=== PATIENT | female | born 1955 | race Caucasian/White ===

== ENCOUNTER 2017-09-01 12:13 | Outpatient (CLI) | payer BC ==
--- NOTE | 2017-09-01 15:13 | RAD ---
LEFT SHOULDER ARTHROGRAM: Date: 09/01/17 INDICATION: Left shoulder pain, concern for rotator cuff tear. TECHNIQUE: Informed consent obtained. Preprocedure aircraft cylinder mechanic images were performed of the left shoulder. A timeout w as performed. Site overlying left shoulder was prepped and draped in the usual sterile fashion. Buffe red 1% lidocaine was administered to overlying subcutaneous tissues. Under fluoroscopic guidance, I p ersonally placed a 22 gauge spinal needle within the glenohumeral joint. I injected the joint with 7 mL of dilute Gadolinium solution. The patient tolerated the injection without difficulty. Total fluoroscopic time was 0.6 minutes. Total exposure was 30 Gy*cm^2. The patient was escorted to the MRI suite for follow-up MR arthrogram of left shoulder. FINDINGS: No acute fracture or subluxation is evident. Glenohumeral and AC joint alignment appear within normal limits. Visualized left lung is clear. IMPRESSION: Successful left shoulder arthrogram. POS: [facility]
--- NOTE | 2017-09-01 15:17 | MRI ---
MRI ARTHROGRAM LEFT SHOULDER: Date: 09/01/17 INDICATION: Left shoulder pain. TECHNIQUE: Multiplanar, multiplanar MR images were obtained of the left shoulder following interarticular admini stration of a dilute Gadolinium solution. FINDINGS: There is a tear involving the superior glenoid labrum extending from approximately the 3 o'clock posi tion through the 12 o'clock position and terminating at approximately the 10 o'clock position. There is a paralabral cyst seen measuring 3.6 mm on image 13, series 6, adjacent to the posterior superior aspect of the glenoid labrum. There is partial thickness extension into the biceps anchor, best seen on image 11 of series 6. The biceps tendon is located. No rotator cuff tear is evident. There is mild AC joint osteoarthrosis. The anterior inferior glenohumeral labral ligament complex is normal appear ing. Glenohumeral articular surface is normal appearing. IMPRESSION: 1. Findings most suspicious for a Type III SLAP tear. 2. Mild AC joint osteoarthrosis. POS: [facility]
== END 2017-09-01 12:14 | disposition home or self-care (01) ==
LOC: RAD 12:13
PROVIDERS: ATTEND Orthopaedic Surgery
DX: M25.512 Pain in left shoulder (principal); M19.012 Primary osteoarthritis, left shoulder
CPT/HCPCS: 23350

== ENCOUNTER 2017-09-14 06:13 | Day surgery (SDC) | payer BC ==
[2017-09-13 11:50] VITALS: BMI 30.4
[2017-09-14] MEDS ORDERED: Lidocaine 0.5%/Epinephrine 1:200,000 50 ml Vial ONE (06:48)
[2017-09-14] MEDS ORDERED: Lidocaine 1% w/Epinephrine 1:200K 30 ML VIAL ONE (06:48)
[2017-09-14 06:49] LABS: #Eosinphils 0.3 thou/uL (0.0-0.7); #Lymphocytes 1.3 thou/uL (1.20-3.40); #Monocytes 0.7 thou/uL (0.11-0.59); #Neutrophils 5.4 thou/uL (1.40-6.50); %Basophils 0.6 % (0.0-1.0); %Eosinophils 3.9 % (0.0-10.0); %Lymphocytes 16.9 % (21.0-51.0); %Monocytes 8.5 % (0.0-10.0); %Neutrophils 70.2 % (42.0-75.0); Hemoglobin 13.5 g/dL (12.0-16.0); Mean Corpuscular Hemoglobin 31.6 pg (27.0-31.0); Mean Corpuscular Volume 92.8 fl (81.0-99.0); Mean Platelet Volume 7.3 fL (7.4-10.4); Platelet Count 334 thou/uL (130-400); Red Blood Cell (RBC) Count 4.28 mill/uL (4.20-5.40); White Blood Cell (WBC) Count 7.7 thou/uL (4.8-10.8)
[2017-09-14] MEDS ORDERED: Lidocaine 1% (PF) 30 ML VIAL ONE (06:50)
[2017-09-14] MEDS ORDERED: Fentanyl 100 MCG/2 ML VIAL ONE ×2 (06:50→07:22)
[2017-09-14] MEDS ORDERED: Midazolam HCl 2 mg/2 ml Vial ONE (06:50)
[2017-09-14 07:14] LABS: Anion Gap 11 mmol/L (10-20); BUN (Urea Nitrogen) 12 mg/dL (9.8-20.1); Calc. Creatinine Clearance 90 mL/min (70-130); Calcium 9.4 mg/dL (7.8-10.44); Carbon Dioxide 26 mmol/L (22-29); Chloride 109 mmol/L (98-107); Estimated GFR-MDRD 80; Glucose 101 mg/dL (70-105); Potassium 4.1 mmol/L (3.5-5.1); Sodium 142 mmol/L (136-145)
[2017-09-14] MEDS ORDERED: Ropivacaine 0.2% 550 ML 550 ML NERVE BLCK SCH (07:25)
[2017-09-14] MEDS ORDERED: HYDROcodone/Acetaminophen 10/325 mg Tablet PO PRN ×2 (07:25)
[2017-09-14] MEDS ORDERED: traMADol HCl 50 MG TAB PO PRN ×2 (07:25)
[2017-09-14] MEDS ORDERED: Ondansetron HCl/PF 4 MG/2 ML Vial IVP PRN (07:25)
[2017-09-14] MEDS ORDERED: Promethazine HCl 25 MG/ML VIAL IM PRN (07:25)
[2017-09-14] MEDS ORDERED: Zolpidem Tartrate 5 MG TAB PO PRN (07:25)
[2017-09-14] MEDS ORDERED: Fentanyl 100 MCG/2 ML VIAL IV PRN (07:26)
[2017-09-14] MEDS ORDERED: CEFAZOLIN/Water 2 GM/20 ML SYRINGE ONE (07:27)
--- NOTE | 2017-09-14 11:04 | OP ---
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 POSTOPERATIVE DIAGNOSES: 1. Left shoulder degenerative SLAP tear with biceps pain and instability. 2. The patient also had a partial undersurface cuff tear less than 10% of the thickness of the rotator cuff in the supraspinatus region. Procedure: 1. Left shoulder arthroscopy with debridement and shaving of partial Supraspinatus tear 2. Open biceps tenodesis left shoulder SURGEON: Cb Malhotra M.D. COUNSELOR CAMP: Timothy Singh PA-C. BLOOD LOSS: Minimal. ANESTHETIC: The patient had a general anesthetic as well as a preoperative block. IMPLANTS: We only have one implant which was an Arthrex 7 x 23 BioComposite Bio -Tenodesis screw. DISPOSITION: She did go to the recovery room in stable condition. INDICATIONS: A 62-year-old female who has failed nonoperative treatment for her left shoulder pain and was found to have degenerative SLAP tear and was felt to have significant biceps pain and instability secondary to this. At this time, she opted to have surgery. DESCRIPTION OF PROCEDURE: After all appropriate consent forms were explained and signed, she was taken to the operating room and at this time was given a general anesthetic. Once the level of anesthesia was appropriate, she was rolled into the right lateral decubitus position with all bony prominences well- padded. Axillary roll was placed underneath the right axilla. Johns bag was inflated to hold her in this position. The arm was then taken through some range of motion. She was found to be a little bit stiff in forward flexion, but no problem with external rotation. Once the patient had been manipulated to good range of motion, she was hung up in traction with 10 pounds to suspend the arm. The left shoulder and upper extremity were then prepped and draped in the standard surgical fashion. Bony anatomic landmarks were drawn out and the subacromial space was infiltrated with lidocaine with epinephrine. At this time , a posterior portal was established and the scope was placed into the shoulder joint. The glenohumeral diagnostic arthroscopy was commenced at this time after the anterior portal was made using a needle localization technique. The articular surfaces of the humeral head and glenoid were in good condition. No loose bodies were noted in the axillary pouch. There was a small undersurface partial thickness tear of the supraspinatus. Remaining rotator cuff was in good condition. The subscapularis was intact except for a tear in its most superior fibers leading to instability of the biceps and there was a degenerative labral tear also leading to biceps instability. This was corroborated by a significant amount of synovitis anterior to the biceps along the undersurface of the capsule. At this time, the shaver was introduced to debride the aforementioned areas. We then placed the green cannula anteriorly. We then used a needle to place a suture through our biceps tendon and used the scissors to cut off the biceps off its labral insertion. This area was debrided. At this time, the scope was repositioned in subacromial space. Lateral working portal was made. Bursa was removed. No bony decompression was performed. Rotator cuff was found to be scuffed on the superior surface, but no tear was noted. At this time, scope was removed, shoulder was drained. We then went ahead and made an incision right next to our puncture hole with our suture with a 15 blade down through skin. Bovie was used to coagulate any brisk venous bleeding. We sharply entered the deltoid fascia and used finger dissection to split the deltoid in line with its fibers to get down to the underlying transverse humeral ligament. This was opened up in its entirety. All brisk venous bleeding was coagulated and the biceps tendon was brought out into the wound. This was then sewn. The intraarticular portion removed. The pin was placed. We reamed with a 7 mm reamer to a depth of 25 and a 7 x 23 BioComposite Bio-Tenodesis screw was placed in standard fashion. Sutures were tied over top of this and then cut. The arm was then taken through full range of motion, deltoid was allowed to close upon itself. The wound was thoroughly irrigated and dried. We then closed our deltoid fascia with a running Vicryl, 2 -0 Vicryl, and nylon sutures were used to close the portals and the skin incision. A bulky sterile dressing was applied. The patient was awakened and taken to the recovery room in stable condition. All counts were correct at the end of the case. She received preoperative IV antibiotics. BG
[2017-09-14] MEDS ORDERED: Ketorolac Tromethamine 30 MG/ML VIAL IVP SCH (12:00)
[2017-09-14] MEDS ORDERED: Ropivacaine 0.2% HCl/PF (40 MG/20 ML VIAL) ONE (15:45)
[2017-09-14] MEDS ORDERED: Ropivacaine 0.5% HCl/PF (150 MG/30 ML VIAL) ONE (15:45)
[2017-09-14] MEDS ORDERED: PHENYLEPHRINE-NS 100 MCG/ML 10 ML SYRINGE ONE (16:24)
[2017-09-14] MEDS ORDERED: Lidocaine 1% PF 5 ML VIAL ONE (16:24)
[2017-09-14] MEDS ORDERED: Propofol 200 MG/20 ML VIAL ONE (16:24)
[2017-09-14] MEDS ORDERED: Glycopyrrolate 0.2 MG/ML 5 ML SYRINGE ONE (16:24)
[2017-09-14] MEDS ORDERED: Dexamethasone 20 MG/5 ML VIAL ONE (16:24)
== END 2017-09-14 12:00 | disposition home or self-care (01) ==
LOC: SDC 06:13
PROVIDERS: ATTEND Orthopaedic Surgery
PROC: 0LS40ZZ Reposition Left Upper Arm Tendon, Open Approach (ICD-10-PCS; principal; 2017-09-14)
PROC: 0LB24ZZ Excision of Left Shoulder Tendon, Percutaneous Endoscopic Approach (ICD-10-PCS; principal; 2017-09-14)
PROC: 0RHK04Z Insertion of Internal Fixation Device into Left Shoulder Joint, Open Approach (ICD-10-PCS; principal; 2017-09-14)
DX: S43.432A Superior glenoid labrum lesion of left shoulder, initial encounter (principal); M75.102 Unspecified rotator cuff tear or rupture of left shoulder, not specified as traumatic; I10 Essential (primary) hypertension; E78.5 Hyperlipidemia, unspecified; M19.90 Unspecified osteoarthritis, unspecified site; Z86.010 Personal history of colon polyps; Z79.82 Long term (current) use of aspirin; Z79.899 Other long term (current) drug therapy; Z88.1 Allergy status to other antibiotic agents; Z91.048 Other nonmedicinal substance allergy status; Z98.1 Arthrodesis status; Z90.49 Acquired absence of other specified parts of digestive tract; Z98.890 Other specified postprocedural states
CPT/HCPCS: 36415; 80048; 85025; 93005; 93010; A4306; C1713; J1100; J2001; J2250; J2704; J2795; J3010

== ENCOUNTER 2018-06-05 15:28 | Outpatient (CLI) | payer BC | END 2018-06-05 15:29 | disposition home or self-care (01) | LOC: BICMAMMO 15:28 | PROVIDERS: ATTEND Family Medicine | DX: Z12.31 Encounter for screening mammogram for malignant neoplasm of breast (principal); R92.1 Mammographic calcification found on diagnostic imaging of breast | CPT/HCPCS: 77063; 77067 ==

== ENCOUNTER 2019-01-29 15:37 | Emergency (ER) | payer BC ==
--- NOTE | 2019-01-29 16:15 | RAD ---
FRONTAL VIEW CHEST: INDICATIONS: Tachycardia. Dysrhythmia. Chest pain. COMPARISON: Two view chest from the same day. FINDINGS: There is a stable appearance of the chest without new consolidation or significant effusion. IMPRESSION: Stable chest. POS: [facility]
[2019-01-29 17:13] LABS: #Eosinphils 0.2 thou/uL (0.0-0.7); #Lymphocytes 2.1 thou/uL (1.20-3.40); #Monocytes 0.6 thou/uL (0.11-0.59); #Neutrophils 5.2 thou/uL (1.40-6.50); %Basophils 0.4 % (0.0-1.0); %Eosinophils 2.9 % (0.0-10.0); %Lymphocytes 25.7 % (21.0-51.0); %Monocytes 6.9 % (0.0-10.0); Hemoglobin 12.6 g/dL (12.0-16.0); Mean Corpuscular Volume 91.4 fL (78.0-98.0); Mean Platelet Volume 8.1 fL (7.4-10.4); Platelet Count 293 thou/uL (130-400); Red Blood Cell (RBC) Count 3.94 mill/uL (4.20-5.40); White Blood Cell (WBC) Count 8.1 thou/uL (4.8-10.8)
[2019-01-29 17:18] LABS: PTT 24.9 SEC (22.9-36.1); Prothrombin Time 13.5 SEC (12.0-14.7)
[2019-01-29 17:19] LABS: D-Dimer Test Less than 0.27 *mcg/mL (0.27-0.43)
[2019-01-29 17:30] LABS: ALT (SGPT) 28 U/L (8-55); AST (SGOT) 16 U/L (5-34); Albumin 4.4 g/dL (3.4-4.8); Alkaline Phosphatase 142 U/L (40-150); Anion Gap 15 mmol/L (10-20); BUN (Urea Nitrogen) 14 mg/dL (9.8-20.1); Bilirubin, Total 0.4 mg/dL (0.2-1.2); Calc. Creatinine Clearance 0 mL/min (70-130); Calcium 9.4 mg/dL (7.8-10.44); Carbon Dioxide 23 mmol/L (23-31); Chloride 108 mmol/L (98-107); Estimated GFR-MDRD 82; Globulin 2.2 g/dL (2.4-3.5); Glucose 114 mg/dL (80-115); Magnesium 2.3 mg/dL (1.6-2.6); Potassium 3.8 mmol/L (3.5-5.1); Protein, Total 6.6 g/dL (6.0-8.3); Sodium 142 mmol/L (136-145)
[2019-01-29 18:35] LABS: Bilirubin Negative (Negative); Blood, Urine Negative (Negative); Clarity TURBID (Clear); Glucose, Urine (Dipstick) Negative (Negative); Leukocyte Negative (Negative); Nitrite Negative (Negative); Protein, Urine (Dipstick) Negative (Neg-Trace)
== END 2019-01-29 18:20 | disposition home or self-care (01) ==
LOC: ERS 15:37
DX: J20.9 Acute bronchitis, unspecified (principal); K21.9 Gastro-esophageal reflux disease without esophagitis; E78.5 Hyperlipidemia, unspecified; I10 Essential (primary) hypertension; I25.10 Atherosclerotic heart disease of native coronary artery without angina pectoris
CPT/HCPCS: 71045; 80053; 81003; 83735; 83880; 84484; 85025; 85379; 85610; 85730; 93005; 94640; J7620

== ENCOUNTER 2019-06-26 11:49 | Outpatient (CLI) | payer BC ==
--- NOTE | 2019-06-26 14:25 | MMO ---
Bilateral MAMMO Bilat Screen [facility]. CLINICAL HISTORY: Patient is 64 years old and is seen for screening. The patient has no family history of breast cancer. The patient has no personal history of cancer. VIEWS: The views performed were: bilateral craniocaudal with tomosynthesis and bilateral mediolateral oblique with tomosynthesis. FILMS COMPARED: The present examination has been compared to prior imaging studies performed at [facility] on 02/15/2014, 02/24/2015, 03/23/2016 and 06/05/2018. This study has been interpreted with the assistance of computer-aided detection. MAMMOGRAM FINDINGS: The breasts are heterogeneously dense, which could obscure a lesion on mammography. There is a focal asymmetry seen in the MLO view only seen in the anterior of the right breast. In the left breast, there are no suspicious masses, calcifications or areas of architectural distortion. IMPRESSION: FOCAL ASYMMETRY IN THE RIGHT BREAST REQUIRES ADDITIONAL EVALUATION. ADDITIONAL PROJECTIONS ARE RECOMMENDED. SPOT COMPRESSION IS RECOMMENDED. THE RESULTS OF THIS EXAM WERE SENT TO THE PATIENT. ACR BI-RADS Category 0 - Incomplete: Need additional imaging evaluation. [facility] will notify the patient of the need for additional imaging services. MAMMOGRAPHY NOTE: 1. A negative mammogram report should not delay a biopsy if a dominant of clinically suspicious mass is present. 2. Approximately 10% to 15% of breast cancers are not detected by mammography. 3. Adenosis and dense breasts may obscure an underlying neoplasm. Reported by: DANE DIXON MD Electonically Signed: [id number]
== END 2019-06-26 11:50 | disposition home or self-care (01) ==
LOC: BICMAMMO 11:49
PROVIDERS: ATTEND Family Medicine
DX: Z12.31 Encounter for screening mammogram for malignant neoplasm of breast (principal); N64.89 Other specified disorders of breast
CPT/HCPCS: 77063; 77067

== ENCOUNTER 2019-07-04 13:07 | Outpatient (CLI) | payer BC ==
--- NOTE | 2019-07-04 13:46 | MMO ---
Right Breast MAMMO Unilat Diag [facility]. CLINICAL HISTORY: Patient is 64 years old and is seen for diagnostic exam. The patient has no family history of breast cancer. The patient has no personal history of cancer. VIEWS: The views performed were: right mediolateral oblique spot compression with tomosynthesis and right mediolateral with tomosynthesis. FILMS COMPARED: The present examination has been compared to prior imaging studies performed at [facility] on 02/24/2015, 03/23/2016, 06/05/2018 and 06/26/2019. This study has been interpreted with the assistance of computer-aided detection. MAMMOGRAM FINDINGS: The breast is heterogeneously dense, which could obscure a lesion on mammography. The questionable density did not persist with the additional views. There are no suspicious masses, suspicious calcifications, or new areas of architectural distortion. IMPRESSION: THERE IS NO MAMMOGRAPHIC EVIDENCE OF MALIGNANCY. A ROUTINE FOLLOW-UP MAMMOGRAM IN 1 YEAR IS RECOMMENDED. THE RESULTS OF THIS EXAM WERE SENT TO THE PATIENT. ACR BI-RADS Category 2 - Benign finding MAMMOGRAPHY NOTE: 1. A negative mammogram report should not delay a biopsy if a dominant of clinically suspicious mass is present. 2. Approximately 10% to 15% of breast cancers are not detected by mammography. 3. Adenosis and dense breasts may obscure an underlying neoplasm. Reported by: NETTA GARCIA MD Electonically Signed: [id number]
== END 2019-07-04 13:08 | disposition home or self-care (01) ==
LOC: BICMAMMO 13:07
PROVIDERS: ATTEND Family Medicine
DX: R92.2 Inconclusive mammogram (principal)
CPT/HCPCS: G0279

== ENCOUNTER 2020-09-11 08:56 | Outpatient (CLI) | payer BC | END 2020-09-11 08:57 | disposition home or self-care (01) | LOC: BICMAMMO 08:56 | PROVIDERS: ATTEND Family Medicine | DX: Z12.31 Encounter for screening mammogram for malignant neoplasm of breast (principal) | CPT/HCPCS: 77063; 77067 ==

== ENCOUNTER 2021-01-13 02:56 | Observation (INO) | payer BC ==
[2021-01-13 05:37] LABS: Troponin I Less than 0.010 ng/mL (< 0.028)
[2021-01-13 07:21] LABS: Troponin I Less than 0.010 ng/mL (< 0.028)
[2021-01-13] MEDS ORDERED: Acetaminophen 325 MG TAB PO PRN (08:40)
[2021-01-13] MEDS ORDERED: HYDROcodone/Acetaminophen 5/325 mg Tablet PO PRN (08:40)
[2021-01-13] MEDS ORDERED: Calcium Carbonate 500 MG ChewTAB PO PRN (08:40)
[2021-01-13] MEDS ORDERED: Nitroglycerin 0.4 MG TAB (25 Tab Bottle) SL PRN (08:40)
[2021-01-13] MEDS ORDERED: Sodium Chloride 0.9% 1,000 ML IV SCH (08:45)
[2021-01-13] MEDS ORDERED: Aspirin Chewable 81 MG TAB PO SCH (09:00)
[2021-01-13 11:14] LABS: SARS-CoV-2 PCR by NAA Not Detected (NotDetected)
[2021-01-13 15:24] VITALS: BP 136/61; BMI 33.0
[2021-01-13] MEDS ORDERED: Rosuvastatin 20 MG TAB PO SCH (21:00)
== END 2021-01-13 15:21 | disposition home or self-care (01) ==
LOC: ERS 02:56 → ERHOLD 03:35 → 2SW 14:21
PROVIDERS: ADMIT Internal Medicine; ATTEND Internal Medicine
DX: R07.9 Chest pain, unspecified (principal); I25.10 Atherosclerotic heart disease of native coronary artery without angina pectoris; E78.5 Hyperlipidemia, unspecified; I10 Essential (primary) hypertension; K21.9 Gastro-esophageal reflux disease without esophagitis; Z79.899 Other long term (current) drug therapy; Z88.1 Allergy status to other antibiotic agents; Z91.048 Other nonmedicinal substance allergy status; Z20.822 Contact with and (suspected) exposure to COVID-19
CPT/HCPCS: 36415; 78452; 93017; 99285; A9500; G0378; U0003; U0005

== ENCOUNTER 2021-12-24 10:39 | Outpatient (CLI) | payer BC | END 2021-12-24 10:40 | disposition home or self-care (01) | LOC: BICMAMMO 10:39 | PROVIDERS: ATTEND Family Medicine | DX: Z12.31 Encounter for screening mammogram for malignant neoplasm of breast (principal) | CPT/HCPCS: 77063; 77067 ==

== ENCOUNTER 2022-08-19 12:20 | Outpatient (CLI) | payer MEDICARE, BC ==
[2022-08-19 13:59] LABS: Hemoglobin 12.9 g/dL (12.0-15.5); Mean Corpuscular HGB CONC 33.8 g/dL (32.0-36.0); Mean Corpuscular Hemoglobin 31.3 pg (27.0-33.0); Mean Corpuscular Volume 92.7 fl (81.6-98.3); Mean Platelet Volume 10.2 fl (7.4-10.4); Platelet Count 376 10x3/uL (150-450); RBC Distribution Width 12.7 % (11.5-14.5); Red Blood Cell (RBC) Count 4.12 10x6/uL (3.90-5.03); White Blood Cell (WBC) Count 9.4 10x3/uL (3.5-10.5)
[2022-08-19 14:05] LABS: Anion Gap 15 mmol/L (10-20); BUN (Urea Nitrogen) 9 mg/dL (9.8-20.1); Calc. Creatinine Clearance 0 mL/min (70-130); Calcium 10.3 mg/dL (7.8-10.44); Carbon Dioxide 28 mmol/L (23-31); Chloride 106 mmol/L (98-107); Estimated GFR 97; Glucose 116 mg/dL (80-115); Potassium 4.5 mmol/L (3.5-5.1); Sodium 144 mmol/L (136-145)
== END 2022-08-19 12:21 | disposition home or self-care (01) ==
LOC: LABBT 12:20
PROVIDERS: ATTEND Otolaryngology Plastic Surgery within the Head & Neck
DX: Z01.818 Encounter for other preprocedural examination (principal); J34.2 Deviated nasal septum; J34.3 Hypertrophy of nasal turbinates
CPT/HCPCS: 80048; 85027; 93005; 93010

== ENCOUNTER 2022-08-19 13:38 | Outpatient (CLI) | payer MEDICARE, BC | END 2022-08-19 13:39 | disposition home or self-care (01) | LOC: TBSIIMAG 13:38 | PROVIDERS: ATTEND Anesthesiology Pain Medicine | DX: M47.26 Other spondylosis with radiculopathy, lumbar region (principal); M51.16 Intervertebral disc disorders with radiculopathy, lumbar region; M25.78 Osteophyte, vertebrae; R29.890 Loss of height; Z98.890 Other specified postprocedural states | CPT/HCPCS: 72100; 72148 ==

== ENCOUNTER 2022-08-25 07:01 | Day surgery (SDC) | payer MEDICARE, BC ==
[2022-08-24 11:08] VITALS: BMI 31.8
[2022-08-25] MEDS ORDERED: Oxymetazoline HCl 0.05% (30 ML BOT) ONE ×2 (08:10→09:02)
[2022-08-25] MEDS ORDERED: Bacitracin Zinc Ointment 30 gm TUBE ONE (09:02)
[2022-08-25] MEDS ORDERED: Lidocaine 1% (PF) 30 ML VIAL ONE (09:02)
[2022-08-25] MEDS ORDERED: EPINEPHrine 1 MG/ML AMP ONE (09:02)
[2022-08-25] MEDS ORDERED: fentaNYL PF 100 MCG/2 ML SYRINGE ONE (09:03)
[2022-08-25] MEDS ORDERED: PROPOFOL 200 MG/20 ML VIAL ONE (09:37)
[2022-08-25] MEDS ORDERED: Ondansetron PF 4 MG/2 ML Vial ONE (09:37)
[2022-08-25] MEDS ORDERED: Rocuronium Bromide 10 MG/ML (10ML VIAL) ONE (09:37)
[2022-08-25] MEDS ORDERED: Succinylcholine Chloride 100 MG/5 ML SYRINGE FS ONE (09:37)
[2022-08-25] MEDS ORDERED: Dexamethasone 20 MG/5 ML VIAL ONE (09:37)
[2022-08-25] MEDS ORDERED: Lidocaine 1% PF 5 ML VIAL ONE (09:37)
[2022-08-25] MEDS ORDERED: Fentanyl 100 MCG/2 ML VIAL ONE (10:15)
== END 2022-08-25 12:19 | disposition home or self-care (01) ==
LOC: SDC 07:01
PROVIDERS: ATTEND Otolaryngology Plastic Surgery within the Head & Neck
DX: J34.2 Deviated nasal septum (principal); J34.3 Hypertrophy of nasal turbinates; J34.89 Other specified disorders of nose and nasal sinuses; I10 Essential (primary) hypertension; E78.5 Hyperlipidemia, unspecified; J45.909 Unspecified asthma, uncomplicated; I25.10 Atherosclerotic heart disease of native coronary artery without angina pectoris; Z79.82 Long term (current) use of aspirin; Z79.899 Other long term (current) drug therapy; Z88.1 Allergy status to other antibiotic agents; Z91.048 Other nonmedicinal substance allergy status
CPT/HCPCS: J0171; J1100; J2001; J2405; J2704; J3010

== ENCOUNTER 2024-01-19 10:40 | Outpatient (CLI) | payer MEDICARE, BC | END 2024-01-19 10:41 | disposition home or self-care (01) | LOC: BICCT 10:40 | PROVIDERS: ATTEND Nurse Practitioner Family | DX: R10.32 Left lower quadrant pain (principal); K76.89 Other specified diseases of liver; K57.90 Diverticulosis of intestine, part unspecified, without perforation or abscess without bleeding; Z90.49 Acquired absence of other specified parts of digestive tract | CPT/HCPCS: 74178; 82565 ==

== ENCOUNTER 2024-02-17 09:32 | Outpatient (CLI) | payer MEDICARE, BC | END 2024-02-17 09:33 | disposition home or self-care (01) | LOC: BICMRI 09:32 | PROVIDERS: ATTEND Family Medicine | DX: S13.4XXD Sprain of ligaments of cervical spine, subsequent encounter (principal); M47.812 Spondylosis without myelopathy or radiculopathy, cervical region | CPT/HCPCS: 72141 ==

== ENCOUNTER 2024-02-17 09:43 | Outpatient (CLI) | payer MEDICARE, BC | END 2024-02-17 09:44 | disposition home or self-care (01) | LOC: BICMAMMO 09:43 | PROVIDERS: ATTEND Family Medicine | DX: Z12.31 Encounter for screening mammogram for malignant neoplasm of breast (principal); M81.8 Other osteoporosis without current pathological fracture | CPT/HCPCS: 77063; 77067; 77080 ==

== ENCOUNTER 2025-03-08 08:17 | Outpatient (CLI) | payer MEDICARE, BC | END 2025-03-08 08:18 | disposition home or self-care (01) | LOC: BICMAMMO 08:17 | PROVIDERS: ATTEND Family Medicine | DX: Z12.31 Encounter for screening mammogram for malignant neoplasm of breast (principal) | CPT/HCPCS: 77063; 77067 ==